=== PATIENT | male | born 2000 | race Caucasian/White ===

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

== ENCOUNTER 2022-12-02 17:58 | Emergency (ER) | payer OTHER ==
[~2022-12-02] VITALS: Ht 167.6 cm; Wt 75.0 kg
[~2022-12-02 17:58] MED LIST changes: +KEFLEX500 M1 PO
[2022-12-02 18:06] VITALS: BP 141/98
[2022-12-02 18:16] VITALS: BP 128/77
[2022-12-02 18:31] VITALS: BP 118/70
[2022-12-02 18:50] LABS: BASO% 0.6 % (0-3); EOS% 3.2 % (0-8); IMMATURE GRANULOCYTES 0.2 % (0.0-5.0); MEAN CORPUSCULAR HGB 29.4 pG CALC (26.0-32.0); MEAN CORPUSCULAR HGB CONC 34.2 g/dL CAL (32.0-36.0); NEUT# 2.35 thou/uL (1.82-7.42); RED BLOOD COUNT 5.44 mill/uL (4.70-6.10); RED CELL DISTRI WIDTH 11.5 % (11.5-15.5)
[2022-12-02 18:51] LABS: URINE BILIRUBIN - DIPSTICK NEGATIVE (NEGATIVE); URINE BLOOD DIPSTICK SMALL (NEGATIVE); URINE CLARITY CLEAR; URINE COLOR YELLOW; URINE GLUCOSE - DIPSTICK NEGATIVE (NEGATIVE); URINE KETONE NEGATIVE (NEGATIVE); URINE LEUK ESTERASE NEGATIVE (Negative); URINE NITRITE - DIPSTICK NEGATIVE (Negative); URINE PROTEIN - DIPSTICK NEGATIVE (NEG-TRACE); URINE SPECIFIC GRAVITY >=1.030; URINE UROBILINOGEN - DIPSTICK 0.2 E.U./dL (0.2)
[2022-12-02 18:51] LABS: HEMATOCRIT 46.8 % (39.0-50.0)
[2022-12-02 19:06] LABS: ANION GAP 13 (6-22 (CALC)); BILIRUBIN, TOTAL 0.7 mg/dL (0.2-1.3); BUN 16 mg/dL (9-20); BUN/CREATININE RATIO 19 (12-20 (CALC)); CARBON DIOXIDE 24 mmol/l (22-30); CHLORIDE 105 mmol/l (95-108); CREATININE 0.8 mg/dL (0.7-1.3); GFR FOR AFR.AMER. > 60 ML/MIN (>=60 (CALC)); GFR OTHER RACES > 60 ML/MIN (>=60 (CALC)); POTASSIUM 3.8 mmol/l (3.5-5.1); SGOT/AST 35 u/l (17-59); SODIUM 139 mmol/l (137-146); TOTAL PROTEIN 7.8 g/dL (6.3-8.2)
[2022-12-02 19:07] LABS: ALKALINE PHOSPHATASE 61 u/l (38-126)
[2022-12-02] MEDS ORDERED: PERCOCET 5/325M1 TAB PO (21:26)
[2022-12-02] MEDS ORDERED: KEFLEX500 MG PO (21:26)
[2022-12-02 22:38] VITALS: BP 118/70
== END 2022-12-02 22:44 | disposition home or self-care (01) ==
LOC: ED 17:58
PROVIDERS: Emergency Medicine
DX: S80.211A Abrasion, right knee, initial encounter (principal); S90.511A Abrasion, right ankle, initial encounter; S30.811A Abrasion of abdominal wall, initial encounter; S30.810A Abrasion of lower back and pelvis, initial encounter; S40.811A Abrasion of right upper arm, initial encounter; S40.021A Contusion of right upper arm, initial encounter; S30.0XXA Contusion of lower back and pelvis, initial encounter; S20.219A Contusion of unspecified front wall of thorax, initial encounter; V86.55XA Driver of 3- or 4- wheeled all-terrain vehicle (ATV) injured in nontraffic accident, initial encounter; Y93.I9 Activity, other involving external motion; Y92.410 Unspecified street and highway as the place of occurrence of the external cause
CPT/HCPCS: Q9967

== ENCOUNTER 2023-11-30 22:02 | Emergency (ER) | payer OTHER ==
[~2023-11-30] VITALS: Ht 167.6 cm; Wt 90.0 kg
[~2023-11-30 22:02] MED LIST changes: +PERCOCET 5/325M1 TAB PO
[2023-11-30] MEDS ORDERED: TAM75CAP PO (22:53)
[2023-11-30] MEDS ORDERED: ONDANSETRON 4 MG/TAB ODT PO ONE (23:25)
[2023-11-30] MEDS ORDERED: ZOFRAN4 MG/TAB PO (23:30)
[2023-11-30 23:36] VITALS: BP 145/79
== END 2023-11-30 23:41 | disposition home or self-care (01) ==
LOC: ED 22:02
DX: J10.1 Influenza due to other identified influenza virus with other respiratory manifestations (principal)